=== PATIENT | female | born 1995 | race African-American/Black ===

== ENCOUNTER → 2023-05-11 | Outpatient (CLI) | payer OTHER, SELFPAY ==
[2023-05-11 09:31] LABS: Absolute Lymphocyte Count 1.25 X10^3/uL (0.83-4.51); Absolute Neutrophil Count 4.3 X10^3/uL (2.0-7.7); Basophil# 0.02 X10^3/uL; Basophil% 0.3 % (0-1); Eosinophil# 0.05 X10^3/uL; Eosinophils% 0.8 % (0-5); Hematocrit 39.9 % (37-47); Hemoglobin 13.4 g/dL (12.0-15.0); Lymphocyte # 1.25 X10^3/ul (0.83-4.51); Lymphocyte % 20.9 % (19-41); Mean Corp Hgb Conc 33.6 g/dL (32-36); Mean Corpuscular Hgb 32.1 pg (27.0-32.0); Mean Corpuscular Volume 95.7 fL (81-99); Mean Platelet Vol. 10.1 fl (6.2-12.0); Monocyte# 0.29 X10^3/uL; Monocyte% 4.9 % (0-10); NRBC Flagged by Analyzer 0 % (0-5); Neutrophil # 4.34 X10^3/uL (2.7-7.7); Neutrophil % 72.8 % (47-70); Platelet Count 289 K/mm3 (150-450); RBC Distribution Width CV 11.9 % (11.6-14.6); RBC Distribution Width SD 41.1 fl (35.1-43.9); Red Blood Count 4.17 M/mm3 (4.2-5.4)
[2023-05-11 10:15] LABS: ALB/GLOB Ratio 0.9 RATIO (0.9-2.4); AST(SGOT) 11 U/L (15-37); Alanine Aminotransfer ALT/SGPT 14 U/L (13-56); Albumin, Serum 3.6 g/dL (3.2-5.0); Alkaline Phosphatase 58 U/L (45-117); Anion Gap 5 (5-15); BUN 7 mg/dL (7-18); BUN/Creat Ratio 9.7 RATIO (10-20); Chloride 108 mmol/L (98-107); Cholesterol 119 mg/dL (200); Creatinine, Serum 0.72 mg/dL (0.55-1.02); EST Glomerular Filtration Rate 103 mL/min (>60); Est Glom Filt Rate - Afr Amer 125 mL/min (>60); Glucose 80 mg/dL (74-106); High Density Lipoprotein 54 mg/dL; Potassium 3.7 mmol/L (3.5-5.1); Protein, Total 7.6 g/dL (6.4-8.2); Sodium Level 137 mmol/L (136-145); Thyroid Stim Hormone (TSH) 0.79 uIU/mL (0.358-3.74); Triglycerides 56 mg/dL; Very Low Density Lipoprotein 11 mg/dL (5-40)
[2023-05-11 11:11] LABS: HIV - WCH Non-Reactive (Nonreactive); Hepatitis C Antibody Non-Reactive (Nonreactive)
== END | disposition home or self-care (01) ==
PROVIDERS: PCP Family Medicine; Referring Provider Family Medicine; Visit Provider Family Medicine
DX: Z00.00 Encounter for general adult medical examination without abnormal findings (principal); Z11.4 Encounter for screening for human immunodeficiency virus [HIV]; Z11.59 Encounter for screening for other viral diseases
CPT/HCPCS: 36415; 80053; 80061; 84443; 85025; 86703; 86803

== ENCOUNTER → 2023-06-16 | Outpatient (CLI) | payer OTHER, SELFPAY ==
[2023-06-17 02:07] LABS: V-Zoster IgG (Immunity) 305 index (Immune >165)
== END | disposition home or self-care (01) ==
LOC: LAB 11:13
PROVIDERS: PCP Family Medicine; Referring Provider Family Medicine; Visit Provider Family Medicine
DX: Z78.9 Other specified health status (principal)
CPT/HCPCS: 36415; 86787

== ENCOUNTER → 2024-06-20 | Outpatient (CLI) | payer OTHER, SELFPAY ==
[2024-06-20 13:06] LABS: HIV - WCH Non-Reactive (Nonreactive); Hepatitis C Antibody Non-Reactive (Nonreactive)
[2024-06-22 20:08] LABS: Chlamydia By Nucleic Acid AMP Negative (Negative); Gonococcus By Nucleic Acid AMP Negative (Negative)
== END | disposition home or self-care (01) ==
LOC: MFPLAB 10:33
PROVIDERS: PCP Family Medicine; Visit Provider Family Medicine
DX: R30.0 Dysuria (principal); Z11.4 Encounter for screening for human immunodeficiency virus [HIV]; Z11.59 Encounter for screening for other viral diseases
CPT/HCPCS: 36415; 86703; 86803; 87491; 87591

== ENCOUNTER → 2024-08-28 | Outpatient (CLI) | payer OTHER, SELFPAY ==
[2024-09-04 13:08] LABS: Chlamydia By Nucleic Acid AMP Negative (Negative); Gonococcus By Nucleic Acid AMP Negative (Negative); Trich. Vag By Nucleic Acid AMP Negative (Negative)
[2024-09-04 13:37] LABS: HPV Reflexed? YES, CHARGE PATIENT
== END | disposition home or self-care (01) ==
LOC: LABSPEC 13:47
PROVIDERS: PCP Family Medicine; Visit Provider Nurse Practitioner Family
DX: Z12.4 Encounter for screening for malignant neoplasm of cervix (principal); Z11.3 Encounter for screening for infections with a predominantly sexual mode of transmission
CPT/HCPCS: 87491; 87591; 87624; 88175; G0145

== ENCOUNTER → 2024-09-28 | Outpatient (CLI) | payer OTHER, SELFPAY ==
--- NOTE | 2024-09-28 | ECC_PTH ---
PATIENT: AURA DUPREE LOC: [facility] #:[id number] AGE/SX: 28/F ROOM: RE09/28/[address]: Dr. Chey Garcia DO : 1995 BED: DIS: 09/28/2024 SPEC #: [id number] RECD: 09/28/24 15:34 STATUS: MAXIMO HAYDENAurelia #: [id number] TREY: 09/28/24 00:[address]: Chey Garcia DEPT: SURGICAL PATHOLOGY RECD BY: Neri Molina ENTERED: 10/01/24 07:09 SP TYPE: ECC JOSEFINA DR: Quinton Paul MD Tissues: A - Endocervical B - Uterine cervix, NOS Procedures: Surgery Specimen Level IV HEADER OPERATION: Colposcopy PRE-OP DIAGNOSIS: LGSIL TISSUE SUBMITTED: A- 9o'clock, B- ECC MICROSCOPIC DIAGNOSIS A. 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 See comment. B. Endocervical curettings: Small strips of superficial squamous epithelium admixed with acute inflammatory cells showing changes suggestive of HPV change. Mucin clot. See comment. PW.mr 10/02/2024 COMMENT A, B. Immunohistochemistry ([id number]) for surrogate HPV marker (p16) and Ki-67 supports the above diagnosis. MICROSCOPIC DESCRIPTION Slides are reviewed. GROSS DESCRIPTION A. Received in fixative is one container labeled with the patient's name and designated 9o'clock. The specimen consists of one irregular fragment of light dawson soft tissue that measures 0.5 x 0.4 x 0.1 cm. The specimen is totally submitted in one cassette. B. Received in fixative is a metallic brush with adherent minute fragments of dawson-red tissue and labeled with the patient's name and and designated per the requisition as ECC BRUSH. The material is dislodged from the brush and submitted for cell block preparation in one cassette. SJ.mr 10/01/2024 TC:2 CPT:24581l5
--- NOTE | 2024-09-28 | IMM_PTH ---
PATIENT: AURA DUPREE LOC: [facility] U#:[id number] AGE/SX: 28/F ROOM: RE09/28/[address]: Dr. Chey Garcia DO : 1995 BED: DIS: 09/28/2024 SPEC #: [id number] RECD: 10/02/24 11:56 STATUS: MAXIMO LUPE #: [id number] TREY: 09/28/24 00:[address]: Chey Garcia DEPT: IMMUNOHISTOCHEMISTRY RECD BY: Anthony Patel ENTERED: 10/02/24 11:57 SP TYPE: IMMUNO OTHR DR: Quinton Paul MD Tissues: A - Uterine cervix, NOS B - Endocervical Procedures: p16 (initial) KI-67 (add) P16 (add) KI-67 (initial) PHYSICIAN & INSTITUTION [place] [id number] SPECIMEN INFORMATION: Tissue Source: A- 9o'clock, B- [facility] Clinical Info: PERRY Specimen Number: [id number] A, B CPT code: [id number] METHODOLOGY: Deparaffinized sections of prefer/formalin-fixed tissue or PAP/DQ stained slides are incubated with monoclonal/polyclonal antibodies/oligonucleotide probes. Localization is made via biotin free immunoperoxidase method. Appropriate controls are performed and reacted as expected. Results on target cell population are indicated in the following table: RESULTS: ANTIBODY / CLONE RESULT Block A P16 (E6H4) positive, focally patchy and weak Ki-67 (30-9) positive, above baseline, only rare cell Block B P16 (E6H4) negative Ki-67 (30-9) negative These tests were developed and their performance characteristics determined by [facility]. They may not have been cleared or approved by the [place]. Food and Drug Administration. The FDA has determined that such clearance or approval is not necessary. The above immunohistochemical/dualISH markers are ordered and reviewed by the Pathologist. INTERPRETATION: A. Cervix, 9o'clock, biopsy: Suggestive of HPV change. B. Endocervical curettings: Suggestive of HPV change. 10/03/2024
== END | disposition home or self-care (01) ==
LOC: LABSPEC 15:19
PROVIDERS: PCP Family Medicine; Referring Provider Obstetrics & Gynecology; Visit Provider Obstetrics & Gynecology
DX: N89.8 Other specified noninflammatory disorders of vagina (principal)
CPT/HCPCS: 87070; 87205; 88305; 88341; 88342

== ENCOUNTER → 2024-10-10 | Outpatient (CLI) | payer OTHER, SELFPAY | END | disposition home or self-care (01) | PROVIDERS: PCP Family Medicine; Referring Provider Obstetrics & Gynecology; Visit Provider Obstetrics & Gynecology | DX: Z20.2 Contact with and (suspected) exposure to infections with a predominantly sexual mode of transmission (principal) ==

== ENCOUNTER → 2025-08-29 | Outpatient (CLI) | payer OTHER, SELFPAY | END | disposition home or self-care (01) | LOC: LABSPEC 16:12 | PROVIDERS: PCP Family Medicine; Visit Provider Nurse Practitioner Family | DX: R87.612 Low grade squamous intraepithelial lesion on cytologic smear of cervix (LGSIL) (principal); Z12.4 Encounter for screening for malignant neoplasm of cervix | CPT/HCPCS: 87624; 88175; G0145 ==